=== PATIENT | female | born 1965 | race Caucasian/White ===

== ENCOUNTER → 2018-11-21 | Outpatient (CLI) | payer OTHER, SELFPAY | PROVIDERS: Referring Provider Internal Medicine Hematology & Oncology; Visit Provider Radiology Diagnostic Radiology | DX: D61.818 Other pancytopenia (principal); C92.00 Acute myeloblastic leukemia, not having achieved remission | CPT/HCPCS: 85025; 85610; 36415; 88312; 88305; 88311; 38222; J3010 ×2; J7040; 85027; 88184; 88185; 88341; 88342; 88360 ==